=== PATIENT | female | born 1965 | race Two or more races ===

== ENCOUNTER 2024-03-18 08:18 | Outpatient (RCR) | payer MEDICAID, SELFPAY ==
--- NOTE | 2024-03-18 09:14 | PTNOTE_ITS ---
PT OP Initial Eval Patient Information Outpatient Physical Therapy Treatment Date: 03/18/24 Visit Reasons: Cervical pain Medical Diagnosis: M54.2 Treatment Dx #1: Neck pain with radiculopathy Start of Care: 03/18/24 Date of Onset: 7 months Smoking Status Smoking Status: Never smoker Initial Assessment Subjective: Pt is 58 yr old togolese speaking female who reports onset of neck pain in July of this year. The pain runs down the L>R shoulders into the arm. She reports decreased strength of R hand not sure why. PMH: Lupus dx in 2007, R LE blood clots with filter in 2007 Imaging: Xray in EMR Mild degenerative disc disease C4-C5, C5-C6 with mild bilateral neural foraminal?? stenosis at these levels?? 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 Pt requires skilled therapy to meet goals and has fair rehab potential. 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 Ind with HEP ? 2. Improved sitting posture to neutral x5' ? 3. Decreased TTP of lower C/S from mod to min ? 4. Pt will turn head L to R x5 with <=4/10 pain Treatment Plan 1. Manual therapy ? 2. Therex ? 3. Modalities as indicated, mechanical traction, estim, moist heat, ice Frequency and Duration: 1-2x a week for 12 visits Certification Dates: 03/18/24 to 06/16/23 Procedure Charges OP PT Eval Mod Complex 30 minutes: Yes
== END 2024-03-30 23:59 | disposition home or self-care (01) ==
LOC: CPTX 08:18
PROVIDERS: PCP Physician Assistant; Referring Provider Physician Assistant; Visit Provider Physician Assistant
DX: M54.12 Radiculopathy, cervical region (principal)
CPT/HCPCS: 97162

== ENCOUNTER 2024-04-08 08:30 | Outpatient (RCR) | payer MEDICAID, SELFPAY ==
--- NOTE | 2024-04-01 09:24 | PT.ODAYNRPT ---
PT Outpatient Daily Note OP Daily Note Outpatient Physical Therapy Treatment Date: 04/01/24 Visit Reasons: Neck pain Subjective: Pt. states R side of neck is stiff Objective: MT: STM to R levator mm, manual cervical traction C/S x7' Assessment: Pt. benefitted from manual cervical traction and neck soft tissue massage to reduce neck stiffness of trigger point in R UT. Plan: continue PT per POC Length of Time (minutes) of Treatment: 30 Minutes Procedure Charges Therapeutic Exercise 30 minutes: Yes
--- NOTE | 2024-04-08 14:06 | PT.ODAYNRPT ---
PT Outpatient Daily Note OP Daily Note Outpatient Physical Therapy Treatment Date: 04/08/24 Visit Reasons: Neck pain Subjective: pt. reports moist hot pack helps improve cervical stiffness and able to tolerate ther-ex. She states she has seen minimal improvement with PT. Objective: see ther-ex for POC STM in R cervical flexion 10 sec holds STM UT L side bend 10 sec holds Assessment: STM reduces neck stiffness and improves tolerance to strech neck B Plan: continue PT per POC to improve cervical rotation B Length of Time (minutes) of Treatment: 30 Minutes Procedure Charges Therapeutic Exercise 30 minutes: Yes
== END 2024-04-30 23:59 | disposition home or self-care (01) ==
LOC: CPTX 08:30
PROVIDERS: PCP Physician Assistant; Referring Provider Physician Assistant; Visit Provider Physician Assistant
DX: M54.12 Radiculopathy, cervical region (principal)
CPT/HCPCS: 97110

== ENCOUNTER → 2024-04-17 | Outpatient (CLI) | payer MEDICAID, SELFPAY ==
--- NOTE | 2024-04-17 09:45 | XR_ITS ---
Examination: Diagnostic digital mammography, unilateral, left Computer aided detection 3-D breast Tomosynthesis, unilateral Date and time of exam: April 17, 2024 0918 hours INDICATIONS: Mammogram June 13, 2023 8 mm focal asymmetry outer left breast Technique: Nonmagnified MLO, CC views of the left breast have been obtained, reconstructed from 3-D Tomosynthesis images. R2 computer aided detection program utilized for evaluation of suspicious masses and/or abnormal calcifications. 3-D Tomosynthesis images obtained. Findings: The breast is heterogeneously dense, which may obscure small masses Stable focal asymmetry upper outer left breast No interval suspicious masses Impression: BI-RADS category 2: Benign findings Recommend 6 month bilateral mammography follow-up
== END | disposition home or self-care (01) ==
PROVIDERS: PCP Physician Assistant; Referring Provider Nurse Practitioner Primary Care; Visit Provider Nurse Practitioner Primary Care
DX: R92.322 Mammographic fibroglandular density, left breast (principal); N64.89 Other specified disorders of breast
CPT/HCPCS: 77061; 77065; G0279

== ENCOUNTER → 2024-09-18 | Outpatient (CLI) | payer MEDICAID, SELFPAY | END | disposition home or self-care (01) | PROVIDERS: PCP Nurse Practitioner Primary Care; Referring Provider Nurse Practitioner Primary Care; Visit Provider Nurse Practitioner Primary Care | DX: Z53.8 Procedure and treatment not carried out for other reasons (principal); R25.1 Tremor, unspecified ==